=== PATIENT | male | born 1980 | race Caucasian/White ===

== ENCOUNTER 2024-10-01 21:43 | Emergency (ER) | payer MEDICAID, SELFPAY ==
[2024-10-01 21:44] VITALS: BP 148/104; PULSE 103; RESP 16; TEMP 36; O2SAT 99; BMI 37.0
--- NOTE | 2024-10-01 21:47 | EKG12_ITS ---
Test Reason : CP Blood Pressure : */* mmHG Vent. Rate : 98 BPM Atrial Rate : 98 BPM P-R Int : 172 ms QRS Dur : 86 ms QT Int : 332 ms P-R-T Axes : 1 22 40 degrees QTcB Int : 423 ms Normal sinus rhythm Normal ECG Confirmed by DAMEON SAMANO, ANANYA ([id number]), newspaper copy editor BARTOLO RODRIGUEZ ([id number]) on 10/05/2024 8:43:38 AM Referred By: Will Tamayo Confirmed By: ANANYA XIAO MD
--- NOTE | 2024-10-01 21:47 | RAD_ITS ---
PROCEDURE: CHEST 1 VIEW (PORTABLE) 10/01/2024 REASON FOR EXAM: CHEST PAIN TECHNIQUE: Frontal view of the chest. COMPARISON: None FINDINGS: Hardware: None Heart: Cardiac and mediastinal contours are stable. Lungs: The lungs are clear. Bones: The bones are unremarkable. Other: RAD/Chest 1 View (Portable) IMPRESSION: No Acute Findings. Reading Location: [facility]
[2024-10-01 22:14] LABS: Absolute Lymphocyte Count 2.78 X10^3/uL (0.83-4.51); Absolute Neutrophil Count 3.3 X10^3/uL (2.0-7.7); Basophil# 0.11 X10^3/uL; Basophil% 1.6 % (0-1); Eosinophil# 0.27 X10^3/uL; Eosinophils% 3.8 % (0-5); Hematocrit 49.7 % (40-54); Hemoglobin 17.3 g/dL (13.0-16.5); Lymphocyte # 2.78 X10^3/ul (0.83-4.51); Lymphocyte % 39.3 % (19-41); Mean Corp Hgb Conc 34.8 g/dL (32-36); Mean Corpuscular Hgb 31.2 pg (27.0-32.0); Mean Corpuscular Volume 89.5 fL (80-94); Mean Platelet Vol. 10.6 fl (6.2-12.0); Monocyte# 0.57 X10^3/uL; Monocyte% 8.1 % (0-10); NRBC Flagged by Analyzer 0 % (0-5); Neutrophil # 3.31 X10^3/uL (2.7-7.7); Neutrophil % 46.8 % (47-70); Platelet Count 174 K/mm3 (150-450); RBC Distribution Width CV 11.8 % (11.6-14.6); RBC Distribution Width SD 38.3 fl (35.1-43.9); Red Blood Count 5.55 M/mm3 (4.6-6.2); White Blood Count 7.1 K/mm3 (4.4-11.0)
[2024-10-01 22:34] LABS: Anion Gap 12 (5-15); BUN 15 mg/dL (4-19); BUN/Creat Ratio 12.9 RATIO (10-20); Calcium,Total 9.1 mg/dL (7.6-11.0); Carbon Dioxide 21.4 mmol/L (21.0-32.0); Chloride 107 mmol/L (98-108); Creatinine, Serum 1.19 mg/dL (0.70-1.20); EST Glomerular Filtration Rate 78 (>60); Glucose 120 mg/dL (70-99); Potassium 4.2 mmol/L (3.3-5.1); Sodium Level 141 mmol/L (133-145); Troponin T High Sensitivity < 6 ng/L (<=22)
[2024-10-01 22:43] VITALS: PULSE 103; RESP 16; O2SAT 95
[2024-10-01 22:47] LABS: D-Dimer Quantitative (DVT/PE) 0.27 FEU/ug/m (0.27-0.49)
[2024-10-01 22:51] LABS: AST(SGOT) 38 U/L (<=37); Alanine Aminotransfer ALT/SGPT 56 U/L (<=46); Albumin, Serum 4.4 g/dL (3.5-5.0); Alkaline Phosphatase 82 U/L (40-129); Bilirubin, Direct 0.14 mg/dL (0.00-0.30); Globulin 2.7 g/dL (2.2-4.2); Lipase 45 U/L (13-75); Protein, Total 7.1 g/dL (5.9-8.4); Total Bilirubin 0.53 mg/dL (0.00-1.30)
[2024-10-01 23:00] VITALS: PULSE 104; O2SAT 96
[2024-10-02] VITALS: BP 115/78; PULSE 95; RESP 23; TEMP 36.8; O2SAT 96
[2024-10-02 01:00] VITALS: BP 118/82; PULSE 84; RESP 16; O2SAT 98
[2024-10-02 01:16] LABS: Troponin T High Sens 2 HR < 6 ng/L (<=22)
--- NOTE | 2024-10-02 01:25 | EDS_ITS ---
HPI History of Present Illness Chief Complaint: Chest Pain Informant: patient Narrative Narrative: Patient is a 44-year-old male with past medical history of of hyperlipidemia as well as smoking. He states over the last 24 hours he will have bouts of chest pain. He describes the pain as a squeezing sensation and states that it can occur at any point whether he is at rest or motion. He states that it will radiate towards his arm and make him feel slightly nauseous. He denies any diaphoresis vomiting or shortness of breath. He states that the symptoms will last only a few seconds to a few minutes and then resolve. He denies any illicit drug use recent travel or surgery or history of DVT/PE. He states that he is unsure if he is being a hypochondriac or if this could be cardiac in nature and secondary to this he presents for evaluation [facility] Home Medications ?Medication ?Instructions ?Recorded ?Last Taken ?Type divalproex 250 mg tablet,delayed mg PO 01/11/15 Unknow n History release Allergy/AdvReac Type Severity Reaction Status Date / Time Pertussis Vaccines Allergy Anaphylaxis Verified 10/01/24 21:44 Social History Smoking Status: Current every day smoker tobacco type: cigarettes ROS ROS ED Constitutional Constitutional ED: Denies chills or fever(s) Eyes Eyes: Denies blurry vision or change in vision ENT ENT ED: Denies sore throat Cardiovascular Cardiovascular: Reports chest pain and palpitations; Denies racing heartbeat Respiratory/Chest Respiratory/Chest: Denies cough or dyspnea Gastrointestinal Gastrointestinal: Reports nausea; Denies abdominal pain, diarrhea or vomiting Genitourinary Genitourinary ED: Denies dysuria Musculoskeletal Musculoskeletal: Denies back pain or myalgias Integumentary Denies rash Neurologic Neurologic: Denies headache(s) Hematologic/Lymphatic Hematologic/Lymphatic: Denies easy bleeding or easy bruising EXAM Physical Exam Const Vital Signs: 10/01/24 21:44 10/01/24 22:43 10/01/24 23:00 Temperature 96.8 F L Temperature Source Temporal Pulse Rate 103 H 103 H 104 H Respiratory Rate 16 16 Respiratory Effort Blood Pressure 148/104 H Blood Pressure Mean 118 Pulse Ox 99 95 96 Oxygen Delivery Method Room Air 10/01/24 23:00 10/02/24 00:00 10/02/24 01:00 Temperature 98.3 F Temperature Source Oral Pulse Rate 95 84 Respiratory Rate 23 H 16 Respiratory Effort Normal Non-Labored Blood Pressure 115/78 118/82 H Blood Pressure Mean 90 94 Pulse Ox 96 98 Oxygen Delivery Method Room Air Room Air 10/02/24 01:26 Temperature 98.5 F Temperature Source Pulse Rate 85 Respiratory Rate 16 Respiratory Effort Blood Pressure 120/84 H Blood Pressure Mean 96 Pulse Ox 95 Oxygen Delivery Method Positive well nourished and well developed General Appearance ED: well developed; Negative for pallor HEENT HEENT Narrative: Normocephalic atraumatic Eyes PERRL and EOMs intact bilaterally General Eye ED: Negative for scleral icterus Neck supple and no JVD Neck Narrative: No nuchal rigidity or meningeal signs Chest Wall palpation of chest normal Chest Narrative: No bony deformity or subcutaneous emphysema noted Resp normal respiratory effort and clear to auscultation bilaterally Cardio regular rate and regular rhythm Rate: other Other Details: Heart is regular rate and rhythm without murmurs rubs or gallops Radial and carotid pulses are equal and symmetric GI normal to inspection, nondistended, normoactive bowel sounds, non-tender, non- distended and no masses GI Narrative: No voluntary guarding or rigidity or pulsatile mass Negative [place] sign Auscultation: normoactive bowel sounds Palpation: soft Extremity normal to inspection Extremity Narrative: No asymmetric edema no pitting edema negative Homans' sign bilaterally Neuro oriented x3, CN's II-XII intact bilaterally and no sensory deficits noted Sensorium / Orientation: alert Motor Exam: strength 5/5 throughout Psych mental status grossly normal Skin no rashes or lesions noted and no wounds General Skin Exam: Negative for jaundice or pallor MDM MDM MDM Narrative Medical decision making narrative: Patient arrived to the ER mildly hypertensive and slightly tachycardic. He reported 24 hours of intermittent chest discomfort. He does have risk factors for cardiovascular disease such as hyperlipidemia smoking and family history. Secondary to this there is concern for acute coronary syndrome versus cardiac dysrhythmia versus Prinzmetal's angina. As he is mildly tachycardic there is concern potential DVT/PE or dissection. Patient also could have pancreatitis or biliary dysfunction as the pain is in his lower chest/upper abdomen. EKG revealed no signs of ischemia or acute LA or cardiac dysrhythmia. Initial and delta troponin were both less than 6 going against ACS. D-dimer is normal going against PE or dissection. 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 Lipase is normal going against pancreatitis and liver enzymes are normal going against a biliary. On repeat evaluation the patient's vitals have stabilized without any provided medication. He has not had any symptoms since his arrival in the ER. Therefore at this time with negative workup and stabilization of vitals I do not feel there is need for admission or further testing is otherwise safe for discharge with outpatient follow-up History & Record Review Discussion w/independent historian: Patient Lab Data Attestation: I reviewed the patient's lab results. Labs: Laboratory Results - last 24 hr 10/01/24 10/02/24 21:59 00:00 WBC 7.1 RBC 5.55 Hgb 17.3 H Hct 49.7 MCV 89.5 MCH 31.2 MCHC 34.8 RDW Std Deviation 38.3 RDW Coeff of Kumar 11.8 Plt Count 174 MPV 10.6 Immature Gran % (Auto) 0.400 Neut % (Auto) 46.8 L Lymph % (Auto) 39.3 [place] % (Auto) 8.1 Eos % (Auto) 3.8 Baso % (Auto) 1.6 H Absolute Neuts (auto) 3.3 Absolute Lymphs (auto) 2.78 Nucleated RBC % 0 D-Dimer Quant (PE/DVT) 0.27 Sodium 141 Potassium 4.2 Chloride 107 Carbon Dioxide 21.4 Anion Gap 12 BUN 15 Creatinine 1.19 Estim Creat Clear Calc 115.20 Est GFR (MDRD) Non-Af 78 BUN/Creatinine Ratio 12.9 Glucose 120 H Calcium 9.1 Total Bilirubin 0.53 Direct Bilirubin 0.14 AST 38 ALT 56 H Alkaline Phosphatase 82 Troponin T High Sens < 6 Troponin T Hi Sens 2 Hr < 6 Total Protein 7.1 Albumin 4.4 Globulin 2.7 Lipase 45 Radiography Diagnostic Testing: Clinical Impression(s) from Imaging Studies Chest X-Ray 10/01/24 21:47 IMPRESSION: No Acute Findings. Reading Location: [facility] Chest x-ray as interpreted by the emergency medicine physician reveals no acute infiltrate pneumothorax or pleural effusion Discharge Plan Triage Chief Complaint: Chest Pain ED Provider: Will Tamayo Dx/Rx/DC Orders Clinical Impression: Nonspecific chest pain, Hyperlipidemia, Tobacco abuse Instructions: ED Chest Pain, Uncertain Cause Prescriptions: No Action divalproex 250 MG tablet PO Primary Care Provider: Mehran Scott Referrals: Mehran Scott MD [Primary Care Provider] - Activity Restrictions/Additional Instructions: Your workup today showed no sign of heart damage inflammation to your pancreas or gallbladder dysfunction. If symptoms persist follow-up with your family doctor to discuss outpatient stress test/echo. If you have any further concerns return to the ER for repeat evaluation Print Language: [place] Disposition Disposition: Home, Self Care Discharge Date/Time: 10/02/24 01:42
[2024-10-02 01:26] VITALS: BP 120/84; PULSE 85; RESP 16; TEMP 36.9; O2SAT 95
== END 2024-10-02 01:42 | disposition home or self-care (01) ==
PROVIDERS: Emergency Provider Emergency Medicine; PCP Family Medicine; Referring Provider Emergency Medicine; Visit Provider Emergency Medicine
DX: R07.89 Other chest pain (principal); E78.5 Hyperlipidemia, unspecified; F17.210 Nicotine dependence, cigarettes, uncomplicated
CPT/HCPCS: 71045; 80048; 80076; 83690; 84484; 85025; 85379; 93005; 99283; A4216